=== PATIENT | male | born 1955 | race Caucasian/White ===

== ENCOUNTER 2019-11-09 13:05 | Day surgery (SDC) | payer OTHER ==
[~2019-11-09 13:05] MED LIST: Buffered Lidocaine 1% SYRIN* 1 ML/SYRINGE INTRADERM ONE; Lactated Ringers 1000 ML Bag* 1,000 ML IV SCH
[2019-11-09] MEDS ORDERED: Buffered Lidocaine 1% SYRIN* 1 ML/SYRINGE INTRADERM ONE (13:37)
[2019-11-09] MEDS ORDERED: ceFAZolin 2 GM PREMIX in ORs 2 GM/50 ML BAG ONE (13:37)
[2019-11-09] MEDS ORDERED: Famotidine IV* 10 MG/ML 2 ML (20 mg) IV SLOW PU ONE (15:39)
[2019-11-09] MEDS ORDERED: Famotidine IV* 10 MG/ML 2 ML (20 mg) ONE (15:40)
[2019-11-09] MEDS ORDERED: Dexamethasone IV* 4 MG/ML 1 ML (4 MG) IV SLOW PU ONE (15:40)
[2019-11-09] MEDS ORDERED: Dexamethasone IV* 4 MG/ML 1 ML (4 MG) ONE (15:40)
[2019-11-09] MEDS ORDERED: HYDROcodone/ACETAMIN 5-325 MG* 1 TAB PO PRN (15:41)
[2019-11-09] MEDS ORDERED: Naloxone* 0.4 MG/ML 1 ML VIAL IV PRN (15:41)
[2019-11-09] MEDS ORDERED: fentaNYL* 50 MCG/ML 2 ML VIAL (100 MCG VIAL) IV PRN (15:41)
[2019-11-09] MEDS ORDERED: DiMENhydriNATE IV* 50 MG/ML VIAL IV PUSH PRN (15:41)
[2019-11-09] MEDS ORDERED: oxyCODONE/Acetamin 5/325 MG* TAB PO PRN (15:41)
[2019-11-09] MEDS ORDERED: fentaNYL* 50 MCG/ML 2 ML VIAL (100 MCG VIAL) ONE ×2 (15:44→18:22)
[2019-11-09] MEDS ORDERED: Lidocaine 2% PF * 5 ML VIAL ONE (15:45)
[2019-11-09] MEDS ORDERED: Propofol* 10 MG/ML 20 ML BTL ONE (15:45)
[2019-11-09] MEDS ORDERED: Midazolam* 1 MG/ML 2 ML VIAL (2 MG) ONE (15:45)
[2019-11-09] MEDS ORDERED: Rocuronium* 10 MG/ML VIAL ONE (15:47)
[2019-11-09] MEDS ORDERED: ROPIVACAINE 5 MG/ML 30 ML BTL (0.5%) ONE (15:48)
[2019-11-09] MEDS ORDERED: EPINEPHRINE 1 MG/ML 1 ML VIAL ONE (15:57)
[2019-11-09] MEDS ORDERED: Phenylephrine 40 MCG/ML SYRINGE ONE (16:41)
[2019-11-09] MEDS ORDERED: EPHEDrine (Pressors)* 50 MG/ML VIAL ONE (17:02)
[2019-11-09] MEDS ORDERED: Labetalol IV* 5 MG/ML 20 ML VIAL ONE (17:22)
[2019-11-09] MEDS ORDERED: Ondansetron INJ* 2 MG/ML VIAL ONE (18:38)
[2019-11-09 21:47] VITALS: BP 147/90
--- NOTE | 2019-11-11 14:37 | OP ---
DATE OF OPERATION: 11/09/19 - SDS DATE OF : 57 SURGEON: Lucian Groves MD CARPET MECHANIC: RAYMOND Juan. A physician medical office assistant was required for the length of the procedure for assistance with patient positioning, retraction, instrumentation, and closure. ANESTHESIOLOGIST: Dr. Gideon Velazquez. ANESTHESIA: General anesthesia, regional interscalene block anesthesia. PRE-OP DIAGNOSES: 1. Left shoulder rotator cuff tendon tear, full-thickness, supraspinatus. 2. Left shoulder partial-thickness moderate grade articular surface tear, possible, subscapularis rotator cuff. 3. Left shoulder subacromial bursitis and impingement. 4. Possible left shoulder capsulitis. 5. Left shoulder possible biceps tendinosis and/or superior labrum tear. 6. Left shoulder acromioclavicular joint osteoarthritis. POST-OP DIAGNOSES: 1. Left shoulder rotator cuff tendon tear, high-grade partial-thickness bursal - sided supraspinatus. 2. Left shoulder rotator cuff tendon tear, high-grade partial-thickness, bursal -sided subscapularis. 3. Left shoulder subacromial bursitis and impingement. 4. Left shoulder capsulitis. 5. Left shoulder biceps tendinosis and superior labrum tear. 6. Left shoulder acromioclavicular joint osteoarthritis. OPERATIVE PROCEDURE: 1. Left shoulder arthroscopic rotator cuff tendon repair, high-grade partial- thickness bursal-sided anterior supraspinatus and superior subscapularis with double row fixation, 2 anchors. 2. Left shoulder arthroscopic biceps tenodesis, suprapectoral in the bicipital groove. 3. Left shoulder arthroscopic subacromial decompression. 4. Left shoulder arthroscopic lysis of adhesions, extensive debridement, consisting of capsulotomy, along with manipulation under anesthesia. 5. Left shoulder limited arthroscopic distal clavicle resection. ANTIBIOTICS: Ancef 2 g IV. IV FLUIDS: See Anesthesia note. [id number] TIME: 127 minutes. SPECIMEN: None. IMPLANTS: Arthrex corkscrew 5.5 mm suture anchor double loaded with SutureTape for the medial row of the rotator cuff fixation. Arthrex SwiveLock 4.75 mm for the lateral row of the rotator cuff fixation. Arthrex SwiveLock 3.5 mm for the biceps tenodesis. COMPLICATIONS: None. ESTIMATED BLOOD LOSS: Minimal. 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 The patient slipped and fell. He had no prior history of left shoulder pain. His left shoulder pain persisted and was very painful with pain and weakness. MRI showed what appeared to be a full-thickness anterior tear of the supraspinatus tendon with some minimal retraction along with some possible low-grade intrasubstance tearing of the infraspinatus tendon as well as some articular surface tearing of the subscapularis tendon. Given the patient's relatively young age and the full-thickness nature of his supraspinatus tear, coming from a traumatic event, I recommended surgery. Of note, the patient had had prior contralateral right shoulder rotator cuff repair surgery of a massive tear that included arthroscopic fixation along with open fixation of a large subscapularis tendon tear that was done by my former colleague, Dr. Lyon. The patient and I spoke about risks and potential complications of surgery. The patient and I spoke about biceps release versus tenodesis and he preferred tenodesis if either were required either by biceps or superior labrum pathology. DESCRIPTION OF PROCEDURE: In preoperative holding, the patient signed a written consent. Operative extremity was marked in preoperative holding. The patient underwent a regional interscalene nerve block in preoperative holding. The patient was taken back to the operating room. Placed supine on the operating room table. Sedated and intubated. I performed a mini time-out. As the patient had had incomplete range of motion in clinic, at this point I performed an examination under anesthesia. I noted that the patient's passive forward flexion was 120 degrees and the external rotation was 70 degrees with the shoulder abducted 90 degrees. Because this was incomplete passive range of motion of the left shoulder, I therefore proceeded to a manipulation under anesthesia. Using appropriate safe technique, holding the scapula and humerus adjacent to the shoulder joint, I performed some manipulation. There was some palpable noise with the stretching of the capsule. I obtained 180 degrees of forward flexion passively. Also with the shoulder abducted, I obtained 90 degrees of external and 70 degrees of internal rotation, essentially full range of motion of the left shoulder. The patient was then placed in the lateral decubitus position. Axillary roll. All bony prominences padded. Beanbag hardened. Longitudinal traction of that left shoulder, 15 pounds with the appropriate amount of abduction and forward flexion of that left shoulder. The patient was prepped and draped. Formal surgical time-out was performed. Spinal needle was entered into the glenohumeral joint from posterior. 30 cc of normal saline was entered into the shoulder joint. I placed my arthroscope into the glenohumeral joint from posterior after creating the posterior glenohumeral joint portal using standard technique. Visibility was poor within the glenohumeral joint at first. There was a flaw in my arthroscope. We obtained a new arthroscope and this improved the image. We established an anterior glenohumeral joint portal under direct visualization. Using an arthroscopic shaver to debride some remaining blood in the joint fluid, stemming from the manipulation under anesthesia. No significant articular cartilage injury. My biggest surprise of the case was there was no tear whatsoever of the undersurface of the supraspinatus. Therefore, that MRI appearance preoperatively of a full-thickness tear of the anterior supraspinatus was inaccurate. There was no full-thickness tear of the anterior supraspinatus. I debrided some rotator cuff interval tissue. I visualized well the subscapularis. It looked very tendinotic, but there was no tearing off of bone of the undersurface of the subscapularis visible. I probed the biceps and the superior labrum. There were patches of significant hyperemia about the biceps anchor proximally along with superior labrum tear. For that reason, I decided to treat these. I brought an arthroscopic scissors in and released the biceps near its origin. No articular cartilage defect. I studied the capsule of the joint, glenohumeral joint. It looked swollen and thickened, such as what I see in a stiff shoulder with capsulitis. This was consistent with the patient's shoulder being stiff even with general anesthesia. For that reason, I next performed a capsular release. I used a special hook tip cautery device and I released the posterior and posteroinferior capsule while working through the posterior portal and visualizing through the anterior portal. I also released some of the anteroinferior capsule while working through the anterior portal and viewing from the posterior portal. I next removed instruments and fluid from the glenohumeral joint and moved to the subacromial space. I established anterior and posterior subacromial portals. I next under direct visualization established lateral and posterolateral portals. I made these lateral and posterolateral portals more anterior than I typically would, expecting to do more of my work anterior than posterior. I should state that prior to leaving the glenohumeral joint and moving to the subacromial space, I had used a spinal needle entered from outside the shoulder to rolly the anterior most aspect of the supraspinatus tendon. I did this even though there was no undersurface tearing just because I wanted to know where the anterior aspect of the supraspinatus was on its bursal side. This is because this is where the tear was on preoperative MRI imaging. Once in the subacromial space having established multiple portals, I went about debriding the subacromial bursitic tissue with an arthroscopic shaver. There was much of it. After having removed that bursitic tissue, I was able to nicely visualize the spinal needle. The spinal needle was placed in a clear bursal-sided tear in the supraspinatus. This appeared to be a high-grade tear. Viewing that tear from the variety of portals, I probed it with a switching stick and arthroscopic probe. It was clearly high-grade. I did not think a Regeneten biologic patch would be sufficient to get it to heal. Especially in a stiffed shoulder, I am not eager to perform a suture anchor rotator cuff repair, but given the high-grade nature of this injury, I believe that suture anchors were required. I used a rotator cuff grasper and noted how the rotator cuff wanted to be repaired. Surprisingly, I realized that the tear encompassed the superior most aspect of the subscapularis as well as the anterior most aspect of the supraspinatus. That was interesting because you do not typically see that. As I probed the tear site, I noticed that it was directly adjacent to the bicipital groove and I could nicely visualize the long head biceps tendon in it. I next performed a subacromial decompression. I skeletonized the undersurface of the acromion with an arthroscopic cautery device and then I smoothed out the anterior aspect of the undersurface of the acromion with an arthroscopic cesia. I also debrided the exposed humeral head footprint with a cautery device followed by an arthroscopic cesia to encourage excellent healing. I assessed again the biceps. My plan had initially been to perform an open proximal biceps tenodesis. However, given that the biceps tendon was so accessible, immediately adjacent to the rotator cuff tear and was easily retrievable and accessible, I decided to perform an arthroscopic biceps tenodesis, that would avoid a large open incision close to the axilla with all the accompanying wound healing and infection concerns, although certainly there is a low risk of those. I placed several luggage tag stitches in the long head biceps tendon while pulling it under tension. I next placed the sutures in a 3.5 mm SwiveLock anchor that I placed in or directly adjacent to the bicipital groove near its superior end. The biceps tendon was firmly tenodesed with this anchor. I next proceeded to the rotator cuff repair. I placed the medial row anchor in the footprint. This 5.5 mm suture anchor took up much of that exposed footprint driving home to me how small this tear was. I placed two horizontal mattress stitches with the sutures from this medial row anchor. I used antegrade and retrograde suture passers. This step was more of a struggle than it typically is given the thickness of the rotator cuff tendon. This led to some equipment issues with both the antegrade Scorpion and retrograde Arthrex lasso suture passers. Eventually, I got both horizontal mattress sutures passed and tied. This excellently brought rotator cuff down to bone anatomically. For some added fixation and because the peripheral more lateral aspect of the rotator cuff proved up a little bit lateral to the repair site, I placed a lateral row suture anchor, SwiveLock using the SutureTape from the medial row. The repair was stable to probing and movement. I next moved to the AC joint. I used my probe to find what seemed to be a clear anterior to posterior gap in bone. I debrided additional bone just medial to that believing that to be the lateral end of the clavicle. I believe I ended up debriding some of the medial acromion as well as the lateral clavicle. I decided not to bill this as a distal clavicle resection as I did not debride a full 8 mm of the distal end of the clavicle. However, there was clearly no clavicle or acromion impinging on underlying rotator cuff, so I was happy with that as being sufficient debridement. Removed instruments and fluid from subacromial space. Closed skin incisions with [id number] and 12 stitches using nylon 3-0 suture. Xeroform, 4x4s, ABDs, and foam tape. Sling and abduction pillow. The patient was awakened, extubated, and transferred to the PACU. DISPOSITION: The patient was given Percocet to take as needed for pain control. Wound care instructions. I will start this patient on physical therapy much sooner than my typical rotator cuff repair for two reasons. The first is it was a very small rotator cuff repair well fixating on the patient. The second is that he had a significant amount of stiffness and capsulitis present preoperatively so I worry about him also getting stiff postoperatively if we do not move him early enough. Tentatively, I will start him with movement with physical therapy at 2 weeks postoperatively. [id number] #: [id number]
== END 2019-11-09 21:30 | disposition home or self-care (01) ==
LOC: OR 13:05
PROVIDERS: ATTEND Orthopaedic Surgery
DX: S46.012D Strain of muscle(s) and tendon(s) of the rotator cuff of left shoulder, subsequent encounter (principal); M25.512 Pain in left shoulder; W01.10XD Fall on same level from slipping, tripping and stumbling with subsequent striking against unspecified object, subsequent encounter; M75.02 Adhesive capsulitis of left shoulder; M75.52 Bursitis of left shoulder; M19.012 Primary osteoarthritis, left shoulder; M25.812 Other specified joint disorders, left shoulder
CPT/HCPCS: C1713; C1776; J0690; J1100; J2250; J2405; J2704; J2795; J3010